=== PATIENT | female | born 1980 | race Caucasian/White ===

== ENCOUNTER 2021-04-20 07:46 | Outpatient (REF) | payer OTHER, SELFPAY ==
[2021-04-20 08:11] LABS: Binax Internal Control QC Valid; Binax Now Covid-19 Ag Positive (Negative)
== END 2021-04-20 07:47 | disposition home or self-care (01) ==
LOC: HO.LAB 07:46
PROVIDERS: Visit Provider Internal Medicine
DX: Z20.822 Contact with and (suspected) exposure to COVID-19 (principal)
CPT/HCPCS: 36415; C9803

== ENCOUNTER 2022-03-19 20:39 | Emergency (ER) | payer OTHER, SELFPAY ==
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
[2022-03-19 21:02] VITALS: BP 132/94; BP 142/84; PULSE 102; PULSE 108; RESP 18; TEMP 37.3; O2SAT 97; O2SAT 98; BMI 26.6
[2022-03-19 21:19] LABS: MANUAL DIFF FLAG NO
[2022-03-19 21:21] LABS: Basophils Percent Auto 0.4 % (0-2); Eosinophils Absolute Auto 0.2 X10*3/uL (0.0-0.4); Eosinophils Percent Auto 2.1 % (0-4); Hematocrit 35.2 % (37.0-47.0); Hemoglobin 12.3 g/dl (12.0-16.0); Imm Gran Abs Auto 0.02 X10*3/uL (0.00-0.03); Imm Gran Pct Auto 0.3 % (0.0-0.4); Lymphocytes Percent Auto 28.3 % (20-40); Mean Corpuscular HGB Conc 34.9 g/dl (31.0-35.0); Mean Corpuscular Hemoglobin 32.7 pg (27.0-33.0); Mean Corpuscular Volume 93.6 fL (80.0-98.0); Mean Platelet Volume 10.3 fL (9.4-12.3); Monocytes Absolute Auto 0.2 X10*3/uL (0.1-1.2); Monocytes Percent Auto 3.4 % (2-11); Neutrophils Absolute Auto 4.7 x10*3/uL (2.0-8.3); Neutrophils Percent Auto 65.5 % (45-73); Platelet Count 195 X10*3/uL (160-400); Red Blood Count 3.76 X10*6/uL (4.20-5.50); Red Cell Distribution Width 11.6 % (11.0-16.0); White Blood Count 7.2 X10*3/uL (4.8-10.8)
[2022-03-19 21:42] LABS: Alanine Aminotransferase 16 U/L (0-31); Albumin Level 4.3 g/dL (3.5-5.0); Alkaline Phosphatase 47 U/L (39-117); Anion Gap 12 (12-20); Aspartate Amino Transferase 20 U/L (5-31); Bilirubin Total 0.2 mg/dL (0.0-1.0); Blood Urea Nitrogen 12 mg/dL (9-16); Calcium 8.7 mg/dL (8.4-10.2); Carbon Dioxide 23 mmol/L (22-29); Chloride 113 mmol/L (96-108); Creatinine Clr Calc Pharmacy 108.5; Estimated Glomerular Filt Rate > 60; Ethanol 235 mg/dL; Glucose Random 93 mg/dL (60-115); Potassium 3.7 mmol/L (3.3-5.1); Sodium 144 mmol/L (135-145)
== END 2022-03-19 22:52 ==
PROVIDERS: Emergency Provider Internal Medicine
DX: S60.512A Abrasion of left hand, initial encounter (principal); F33.1 Major depressive disorder, recurrent, moderate; F10.129 Alcohol abuse with intoxication, unspecified; Y90.8 Blood alcohol level of 240 mg/100 ml or more; V47.5XXA Car driver injured in collision with fixed or stationary object in traffic accident, initial encounter; Y93.9 Activity, unspecified; Y92.410 Unspecified street and highway as the place of occurrence of the external cause; Y99.9 Unspecified external cause status
CPT/HCPCS: 36415; 80053; 82077; 85025; 99283

== ENCOUNTER 2022-04-08 06:10 | Emergency (ER) | payer OTHER, SELFPAY ==
[2022-04-08 06:19] VITALS: BP 111/78; PULSE 92; O2SAT 99; BMI 23.3
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
--- NOTE | 2022-04-08 06:29 | PC.NURSE ---
No apparent distress.
--- NOTE | 2022-04-08 06:46 | PC.NURSE ---
After cleaning pt's face with sterile water, noted: 2-3cm lac/ecchymosis to forehead with a couple of abrasions to the surrounding area, minor abrasion to the bridge of the nose, and abrasion underneath the chin.
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
[2022-04-08 07:55] VITALS: BP 100/63; PULSE 59; RESP 16; O2SAT 99
[2022-04-08] MEDS: Acetaminophen 325 MG TABLET 650 MG PO (08:07)
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
== END 2022-04-08 08:42 | disposition home or self-care (01) ==
PROVIDERS: Emergency Provider Emergency Medicine
DX: S06.0X1A Concussion with loss of consciousness of 30 minutes or less, initial encounter (principal); S00.83XA Contusion of other part of head, initial encounter; S01.81XA Laceration without foreign body of other part of head, initial encounter; S01.511A Laceration without foreign body of lip, initial encounter; V28.09XA Other motorcycle driver injured in noncollision transport accident in nontraffic accident, initial encounter; Y93.89 Activity, other specified; Y92.414 Local residential or business street as the place of occurrence of the external cause; Y99.9 Unspecified external cause status
CPT/HCPCS: 12011; 70450; 70486; 72125; 99284